=== PATIENT | female | born 1990 | race Caucasian/White ===

== ENCOUNTER 2024-11-12 18:27 | Emergency (ER) | payer OTHER, SELFPAY ==
[2024-11-12 18:29] VITALS: BP 134/88
[2024-11-12 19:43] LABS: % Basophils 0.3 % (0-2); % Eosinophils 0.9 % (0-6); % Immature Granulocytes 0.7 % (0-0.5); % Lymphocytes 17.8 % (20.5-51.1); % Monocytes 6.8 % (1.7-9.3); % Neutrophils 73.5 % (42.2-75.2); Absolute Eosinophils 0.1 10^3/uL (0-0.7); Absolute Immature Granulocytes 0.1 10^3/uL (0-0.05); Absolute Lymphocytes 2.6 10^3/uL (1.2-3.4); Absolute Neutrophils 10.7 10^3/uL (1.4-6.5); Hematocrit 32.9 % (37.0-47.0); Hemoglobin 11.5 g/dL (12.0-16.0); Mean Corpuscular Hgb 31.8 pg (27.0-31.0); Mean Corpuscular Volume 90.9 fL (81.0-99.0); Mean Platelet Volume 9.4 fL (7.4-10.4); Nucleated Red Blood Cells % 0 %; Platelet Count 250 10^3/uL (130-400); Red Blood Cell Count 3.62 10^6/uL (4.20-5.40); Red Cell Dist. Width 12.8 % (11.5-14.5); White Blood Cell Count 14.6 10^3/uL (4.8-10.8)
[2024-11-12 20:04] LABS: ALT (SGPT) 11 U/L (0-35); AST (SGOT) 14 U/L (14-36); Albumin 3.6 g/dl (3.5-5.0); Alkaline Phosphatase 62 U/L (38-126); Blood Urea Nitrogen 3 mg/dl (7-17); Calcium 9.3 mg/dl (8.4-10.2); Carbon Dioxide 24 mmol/L (22-30); Chloride 105 mmol/L (98-107); Glucose 87 mg/dl (70-99); Potassium 4.5 mmol/L (3.5-5.1); Sodium 135 mmol/L (135-145); Total Bilirubin 0.4 mg/dl (0.2-1.3); Total Protein 6.3 g/dl (6.3-8.2); eGFR > 60.00
[2024-11-12] MEDS: NSS 1000 IV (20:16)
[2024-11-12 20:18] VITALS: BP 109/64
[2024-11-12] MEDS: BENADRYL 25 MG IV (21:30)
[2024-11-12] MEDS: REGLAN 10 MG IV (21:30)
[2024-11-12 23:21] VITALS: BP 103/60
--- NOTE | 2024-11-12 23:48 | ED.GENMED ---
History of Present Illness
General
Chief Complaint: Headache
Source: patient and spouse
Time Seen by Provider: 11/12/24 19:43
History of Present Illness
History of Present Illness:
33-year-old female who is approximate 25 weeks presents with a headache. Headache has been going for about 5 to 6 days. She states she has seen several doctors and recently got treated for sinusitis. She admits that a few weeks ago she
had COVID and so did her family. She has had a cough since but has had several negative COVID test. Patient denies shortness of breath. She does states she was congested but is little better now. She has had normal movement. No dysuria.
She reports that the pain radiates from her neck toward the back of her right eye. No vision changes. She does admit to a little bit of photophobia but no true nausea. Admits she tried Tylenol but did not do much and she does not like taking
anything given she is . She states that she will not do any x-rays.
Past History
Past History
ED Past Medical History: Other (History of C. difficile colitis) and Other (Status post appendectomy, chronic abdominal pain)
ED Past Surgical History: Appendectomy and Other (Mandible surgery)
Social History
Tobacco: Non-smoker
Alcohol: None
Personal: Single
Employment: Employed
Family History
Family History: Other (Father with brain cancer)
Phy Exam
Physical Exam
Physical Exam:
CONSTITUTIONAL Patient alert and oriented to person, place and time. Well-appearing. Vital signs reviewed.
HEAD atraumatic, normocephalic.
EYES eyelids normal to inspection, Extraocular muscles intact, Conjunctiva normal, Sclera normal. No papilledema
NECK normal range of motion, Trachea midline, no jugular venous distention. No meningismus
RESPIRATORY CHEST No respiratory distress noted, Chest expansion equal, Bilateral breath sounds clear.
CARDIOVASCULAR regular rate and rhythm, Heart sounds normal.
ABDOMEN abdomen nontender, Bowel sounds normal. No distention.
BACK normal inspection, no obvious deformities
UPPER EXTREMITY range of motion normal, Motor strength normal, no cyanosis, no edema.
LOWER EXTREMITY range of motion normal, Motor strength normal, no cyanosis, no edema.
NEURO Speech normal, No focal motor deficits, Jorge coma scale 15, Memory normal, Cranial Nerves intact to screening exam. No pronator drift
SKIN skin warm, dry, and normal in color.
Course
Orders/Labs/Results
Orders:
Orders
11/12/24 19:35
Complete Blood Count/With Diff Urgent
Comprehensive Metabolic Panel Urgent
11/12/24 20:15
MR Brain Without Contrast Urgent
Comment:
Reason For Exam: Headache, , r/o SAH, r/o venous thrombosis
OK for patient to be off Cardiac Monitoring for MRI: Yes
Recent pill cam endoscopy?: No
11/12/24 20:16
0.9% Sodium Chloride 1000 ml [Nss] 1,000 ml IV BOLUS
11/12/24 20:17
Diphenhydramine [Benadryl] 25 mg IV NOW STA
Metoclopramide [Reglan] 10 mg IV NOW STA
Abnormal Lab Results
11/12/24
19:35
WBC 14.6 H 10^3/uL
(4.8-10.8)
RBC 3.62 L 10^6/uL
(4.20-5.40)
Hgb 11.5 L g/dL
(12.0-16.0)
Hct 32.9 L %
(37.0-47.0)
MCH 31.8 H pg
(27.0-31.0)
Abs Immat Gran (auto) 0.1 H 10^3/uL
(0-0.05)
Absolute Neuts (auto) 10.7 H 10^3/uL
(1.4-6.5)
Absolute Monos (auto) 1.0 H 10^3/uL
(0.1-0.6)
Immature Gran % 0.7 H %
(0-0.5)
Lymphocytes % 17.8 L %
(20.5-51.1)
BUN 3 L mg/dl
(7-17)
Creatinine 0.5 L mg/dL
(0.6-1.0)
11/12/24 19:35
11/12/24 19:35
Vital Signs
Initial and Last Documented VS:
Initial Vital Signs
Temp Pulse Resp BP Pulse Ox
98.5 F 96 18 134/88 100
11/12/24 18:29 11/12/24 18:29 11/12/24 18:29 11/12/24 18:29 11/12/24 18:29
Last Documented Vital Signs
Temp Pulse Resp BP Pulse Ox
98.7 F 82 20 103/60 97
11/12/24 23:21 11/12/24 23:21 11/12/24 23:21 11/12/24 23:21 11/12/24 23:21
MDM/Problems Addressed
Differential Diagnosis Includes:
Subarachnoid hemorrhage, tumor, intraparenchymal hemorrhage, meningitis, dural sinus venous thrombosis, aneurysm
MDM/Problems Addressed:
Headache, sinusitis
*Radiology
Radiology exam reviewed: radiology read reviewed
*Pulse Oximetry
Patient hypoxic: no
*Critical Care Note
Total Time (30-74mins, 75-104mins- exclusive of procedures): Not Applicable
Data Reviewed
Source: patient and spouse
Further Testing Considered But Not Given:
Considered CT and CTA with patient on CT imaging
Patient Management
Discussion with other providers: Radiologist (In light of multiple visits and continued headache, imaging recommended. Discussed with radiology regarding the need to rule out sinus thrombosis, subarachnoid hemorrhage, intercranial hemorrhage.
Recommends MRI as ordered.)
Escalation/DeEscalation of care consider admission/obs:
MRI ordered by recommendation of radiology. Negative. Does have sinusitis. Continue Augmentin and she is leaving on a 2 days. Patient has been using nasal sprays. Recommend PCP and ENT follow-up. No meningeal findings. Lungs clear by
auscultation but did recommend chest x-ray with patient does not want chest x-ray. She is being treated with Augmentin which should cover pneumonia if that were to be a factor. Patient feels a little bit better but not completely. At this point
she does not want any other medications
ED Attending Note
-
Portions of this chart may have been created with voice recognition software.� Occasional wrong word or��sound alike� substitutions may have occurred due to the inherent limitations of voice recognition software.
Discharge Plan
Departure
Patient Disposition: Home (Routine Discharge)
Date of Disposition: 11/12/24
Time of Disposition: 23:53
Patient with high blood pressure during this ER visit?: No
Discharge Problem:
Headache, Acute sinusitis
Instructions: Sinusitis in adults, Headache, Adult (DC)
Prescriptions:
No Action
PNV cmb#95-ferrous fumarate-FA [] 1 EACH tablet
1 ea PO DAILY
Referrals:
Dylan Stevenson MD [Active] -
UNKNOWN - PT DOES,NOT KNOW [Family Provider] -
Activity Restrictions/Additional Instructions:
Please see your doctor and ENT in the next 1 week for follow-up evaluation. Return for changes in vision, motor weakness, worsening headache, fevers, neck pain or any other concerns. Continue your antibiotics.
Interventions
Interventions:
*Risk Screen - Suicide Last Done: 11/12/24 18:29
*General Assessment Last Done: 11/12/24 23:27
*Neglect/Abuse Screening Last Done: 11/12/24 18:29
*ED- Fall Risk Assessment Last Done: 11/12/24 23:27
*ED COVID-19 Vaccine History Last Done: 11/12/24 18:29
ED- Neurological Assessment Last Done: 11/12/24 23:27
Discharge Date and Time
Print Language: SERBIAN
== END 2024-11-13 | disposition home or self-care (01) ==
LOC: EMR 18:27
PROVIDERS: EMERGENCY PHYSICIAN Emergency Medicine
DX: O99.512 Diseases of the respiratory system complicating pregnancy, second trimester (principal); J01.90 Acute sinusitis, unspecified; O99.891 Other specified diseases and conditions complicating pregnancy; R51.9 Headache, unspecified; Z3A.25 25 weeks gestation of pregnancy
CPT/HCPCS: 96374; 96375; 96361; 99284; 70551; 80053; 85025